=== PATIENT | male | born 1980 | race Caucasian/White ===

== ENCOUNTER 2018-09-10 06:15 | Day surgery (SDC) | payer OTHER ==
[2018-09-10] MEDS ORDERED: LACTATED RINGERS 1,000 ML IV ONE ×4 (06:30→10:20)
[2018-09-10] MEDS ORDERED: cefTRIAXone 2 GM VIAL ONE (07:04)
[2018-09-10] MEDS ORDERED: EPINEPHrine 1 MG/ML AMP ONE ×2 (07:09→07:19)
[2018-09-10] MEDS ORDERED: BUPIVACAINE 0.25% PF 30 ML VIAL ONE (07:09)
[2018-09-10] MEDS ORDERED: BUPIVACAINE 0.5% PF 30 ML VIAL ONE (07:09)
--- NOTE | 2018-09-10 07:11 | ANESTHESIA ---
Pre-Anesthesia VS, & Labs <HortenciaHaydee gregg - Last Filed: 09/10/18 07:08> - NPO >8 hours <ChasityAmie - Last Filed: 09/10/18 07:21> - Diagnosis left shoulder labral tear, biceps tendinitis (Haydee Martin) left shoulder labral tear, biceps tendinitis (Amie Gaspar) - Procedure Right shoulder arthroscopy, slap , , RCR, possible open biceps tenodesis (Haydee Martin) Right shoulder arthroscopy, slap , , RCR, possible open biceps tenodesis (Amie Gaspar) Vital Signs: Temp Pulse Resp BP Pulse Ox 36.4 C L 69 16 119/68 98 09/10/18 06:34 09/10/18 06:34 09/10/18 06:34 09/10/18 06:34 09/10/18 06:34 Height 5 ft 10.5 in Weight (kg) 109.8 kg Home Medications and Allergies <HortenciaHaydee gregg Anastasia - Last Filed: 09/10/18 07:08> <Amie Gaspar - Last Filed: 09/10/18 07:21> Home Medications: Ambulatory Orders No Known Home Medications 09/01/18 No Known Home Medications 09/01/18 Allergies/Adverse Reactions: Allergies Allergy/AdvReac Type Severity Reaction Status Date / Time No Known Drug Allergies Allergy Verified 09/01/18 12:21 Anes History & Medical History - Medical History Cardiovascular: reports: None Pulmonary: reports: Sleep apnea Gastrointestinal: reports: None Urinary: reports: None Musculoskeletal: reports: Other Skin: reports: None - Surgical History General: Appendectomy <HortenciaHaydee gregg Anastasia - Last Filed: 09/10/18 07:08> - Anesthetic History Anesthesia Complications: reports: Malignant Hyperthermia - Medical History Pulmonary: reports: Sleep apnea (positional therapy. snores) Neuro: reports: None Endocrine/Autoimmune: reports: None Blood Disorders: reports: None Smoking Status: Former smoker (quit smoking 2 months ago) Psychosocial: reports: No issues indicated <ChasityAmie Last Filed: 09/10/18 07:21> Exam General: Alert, Oriented x3, Cooperative, No acute distress Dental: WNL Mouth Openin Fingerbreadth Neck Mobility: Normal Mallampati classification: II Thyromental Distance: 4-6 cm Respiratory: Lungs clear, Normal breath sounds, No respiratory distress, No accessory muscle use Cardiovascular: Regular rate, Normal S1, Normal S2, No murmurs Mental/Cognitive Status: Alert/Oriented X3, Normal for patient Cognitive Status: Within normal limits <Amie Gaspar - Last Filed: 09/10/18 07:21> Plan Anesthesia Type: General, Interscalene Block (Left ISB) Regional Block: Per Surgeon's request for Post Op pain control Consent for Procedure(s) Verified and Reviewed: Yes Code Status: Attempt Resuscitation ASA classification: 2-Mild systemic disease Is this case an emergency?: No <Amie Gaspar - Last Filed: 09/10/18 07:21>
[2018-09-10] MEDS ORDERED: fentaNYL 100 MCG/2 ML VIAL IVP ONE (08:48)
[2018-09-10] MEDS ORDERED: PROPOFOL 1000 MG/100 ML IV ONE (08:48)
[2018-09-10] MEDS ORDERED: ONDANSETRON 4 MG/2 ML VIAL IVP ONE (08:48)
[2018-09-10] MEDS ORDERED: DEXAMETHASONE 4 MG/ML VIAL IVP ONE (08:48)
[2018-09-10] MEDS ORDERED: PROPOFOL 200 MG/20 ML VIAL IVP ONE (08:48)
[2018-09-10] MEDS ORDERED: KETOROLAC 30 MG/ML VIAL IVP ONE (08:48)
[2018-09-10] MEDS ORDERED: MIDAZOLAM 2 MG/2 ML VIAL IVP ONE (08:48)
[2018-09-10] MEDS ORDERED: ROCURONIUM 50 MG/5 ML VIAL IVP ONE (08:48)
[2018-09-10] MEDS ORDERED: ROPIVACAINE 0.5% PF 20 ML AMPULE EP ONE (08:48)
[2018-09-10] MEDS ORDERED: ONDANSETRON 4 MG/2 ML VIAL IVP PRN (10:28)
[2018-09-10] MEDS ORDERED: oxyCODONE 5 MG TABLET PO PRN (10:28)
[2018-09-10] MEDS ORDERED: fentaNYL 100 MCG/2 ML VIAL ONE (10:34)
--- NOTE | 2018-09-10 10:34 | OPERATIVE REPORT ---
Operative Report - General Procedure Date: 09/10/18 Planned Procedure: Left shoulder labral repair Pre-Op Diagnosis: Left shoulder labral tear Procedure Performed: Left shoulder arthroscopic labral repair Post Op Diagnosis: Left shoulder labral tear - Procedure Note Primary Surgeon: Gene Jasso Secondary Surgeon: Adam DOSS Estimated Blood Loss (mL): 10 Complications: None - Other Other Information/Narrative: DETAILED PROCEDURE: Labral repair from 4:00 to 8:00 IMPLANTS: Arthrex knotless suture tack x4 POSTOPERATIVE PLAN: 0-2 weekssling at all times, pendulum exercises 5 times per day. 2-6 weekspassive range of motion, forward flexion to 120, no internal rotation when forward flexed above 90, external rotation to 30 degrees, abduction to 90 degrees 6-12 weeksactive range of motion in all planes without limitation. isometric rotator cuff strengthening 12-16 weeksgradually increase strengthening 16 weeks and beyondintroduce dynamic activities FINDINGS: Rotator interval-showed some fraying. Biceps tendon was intact with an intact anchor. Subscapularis had some fraying at the insertion but it was stable and good tension was seen. The superior rotator cuff tendons were intact. There was no Hagel lesion. An inferior labral tear was seen from 8:00 to 4:00. There was loosening of the cartilage along the glenoid border at that area but no pauly glad a lesion. Glenoid cartilage was intact. Humeral head cartilage was intact. INDICATION FOR SURGERY: This is a 37-year-old male who sustained a shoulder injury while doing bench press 3 years ago. He ended up dropping 315 pounds. The shoulder has been painful since that time and he is unable to do push-ups or other pressing activities. He additionally has pain with daily activities and sleeping. He did not have any anterior symptoms localizing to the biceps tendon. He was indicated for operative management after failing nonoperative treatment. The risks, benefits, alternatives were discussed. Risks included pain, bleeding, infection, damage to nearby structures, lack of symptom relief, implant complications, stiffness, need for further surgeries. He signed a written consent form. His brother has malignant hyperthermia and so he was managed as though he has it as well with a block and propofol. PROCEDURE IN DETAIL: The patient was met in the preoperative holding on the day of the procedure. Operative extremity was signed. Consent was verified. He desired to proceed. Regional anesthesia was obtained in the preoperative area. He was brought to the operating room and surrendered to anesthesia. He was placed in the lateral decubitus position with the left side up. An axillary roll was placed and all bony prominences were well-padded. He was then prepped and draped in the standard sterile fashion. A surgical timeout was held to confirm the patient procedure, identity, allergies, images, antibiotics. All were in agreement we proceeded. Balanced suspension was applied and a standard diagnostic arthroscopy was performed utilizing posterior and anterosuperior portal sites. The anterior superior portal site was created under direct visualization. The findings of the diagnostic arthroscopy can be found above. A mid glenoid portal was then created. I then used a combination of high and low angled spatulas to develop the labral tear and release it from the underlying scar tissue. I then used to the pineapple rasp to finalize my release and abraded the bone. I used a sucker shaver within the interval to debride any loose tissue and create a bleeding bed of bone on the glenoid border. The loosened portion of cartilage was also debrided back to a stable base. I then established a percutaneous 7:00 portal utilizing the Arthrex system. From this portal I placed anchors at the 530 and 630 positions. I then used the suture passer and the knotless technique to perform the labral repair without a significant capsulorrhaphy. After tightening and checking the tension the sutures were cut. I then placed an additional anchor at the 430 position anteriorly and at the 730 position posteriorly. After tightening all sutures the bumper was restored and the labrum stable. I then took final pictures after releasing the balance suspension. The portal sites were then closed with 3-0 Monocryl buried. Steri-Strips were placed. Dressing and sling was applied. He was awakened and transferred to the recovery room.
[2018-09-10 11:28] VITALS: BP 109/66
== END 2018-09-10 06:16 | disposition home or self-care (01) ==
LOC: SDS 06:15
PROVIDERS: ATTEND Orthopaedic Surgery
PROC: 0RQK4ZZ Repair Left Shoulder Joint, Percutaneous Endoscopic Approach (ICD-10-PCS; principal; 2018-09-10 07:30)
DX: S43.492A Other sprain of left shoulder joint, initial encounter (principal); G24.9 Dystonia, unspecified; G47.30 Sleep apnea, unspecified; Z84.89 Family history of other specified conditions; Z72.0 Tobacco use; M19.012 Primary osteoarthritis, left shoulder
CPT/HCPCS: 29999; C1713; J7120